=== PATIENT | female | born 1945 | race Caucasian/White ===

== ENCOUNTER 2017-11-12 06:33 | Day surgery (SDC) | payer MEDICARE ==
[~2017-11-12 06:33] MED LIST: Acetaminophen TAB* 325 MG PO PRN; Buffered Lidocaine 0.9% SYRIN* 5 ML/SYR SYRINGE INTRADERM ONE
[2017-11-12] MEDS ORDERED: Ketorolac 0.5% OPHTH (NF) 0.5 % 5 ML BTL ONE (07:14)
[2017-11-12] MEDS ORDERED: Phenylephrine 2.5% OPTH.SOL* 2 ML BTL ONE (07:14)
[2017-11-12] MEDS ORDERED: Tropicamide 1% OPTH.SOL* BTL ONE (07:14)
[2017-11-12] MEDS ORDERED: Neomycin/Polymy/Dex OPHTH.OIN* 3.5 GM ONE (07:14)
[2017-11-12] MEDS ORDERED: Cyclopentolate 1% OPTH.SOL* 2 ML BTL ONE (07:14)
[2017-11-12] MEDS ORDERED: Tetracaine 0.5% OPTH.SOL 4 ML* 1 DROP BTL ONE (07:14)
[2017-11-12] MEDS ORDERED: Lidocaine 1% MPF* 2 ML VIAL ONE (07:14)
[2017-11-12] MEDS ORDERED: Midazolam* 1 MG/ML 2 ML VIAL (2 MG) ONE (07:45)
[2017-11-12 08:12] VITALS: BP 130/76
--- NOTE | 2017-11-12 11:07 | OP ---
DATE OF OPERATION/DATE OF DICTATION: 11/12/2017 - [facility] DATE OF : 1945. SURGEON: Dr. Ryan House. MARINE ELECTRICIAN: None. ANESTHESIA: Topical with intravenous sedation. PRE-OP DIAGNOSIS: Cataract, right eye. POST-OP DIAGNOSIS: Cataract, right eye. OPERATIVE PROCEDURE: Phacoemulsification and cataract extraction with posterior chamber intraocular lens implant, right eye. COMPLICATIONS: None. BLOOD LOSS: None. DESCRIPTION OF PROCEDURE: The patient was brought to the operating room and received a small amount of intra-venous sedation. A drop of Tetracaine was placed in her right eye. She was prepped and draped in the usual sterile fashion for ophthalmic surgery and attention was directed to the right eye where a speculum was placed. A paracentesis was created at the 11 o'clock position and 0.1 cc of 1 percent preservative-free Lidocaine was injected into the anterior chamber followed by DisCoVisc. The eye was digitally stabilized while a 2.75 mm keratome was used to create a triplanar clear corneal incision at the 9 o'clock position. A continuous curvilinear capsulorrhexis was created with a cystotome and Utrata forceps. BSS on a cannula was used to hydrodissect the lens from the capsule. Phacoemulsification was performed in a divide-and- conquer technique to create four fragments which were removed. Residual cortical material was removed with irrigation and aspiration. DisCoVisc was used to inflate the capsular bag and an AUOOTO 17.5 diopter lens was folded and inserted into the capsular bag. DisCoVisc was removed using irrigation and aspiration. BSS on a cannula was used to hydrate the corneal stroma and seal the wound. At the end of the case the pupil was round and the lens was centered. The eye was of normal pressure and the wound was water tight. The speculum was removed and topical Maxitrol ointment was placed on the surface of the eye. The eye was closed, patched and shielded and the patient was sent to the recovery room in stable condition with post operative instructions and follow-up appointment given. [id number] #: [id number] MTDD
== END 2017-11-12 08:13 | disposition home or self-care (01) ==
LOC: OREAST 06:33
PROVIDERS: ATTEND Ophthalmology
DX: H25.11 Age-related nuclear cataract, right eye (principal); Z85.43 Personal history of malignant neoplasm of ovary; M81.0 Age-related osteoporosis without current pathological fracture; K91.2 Postsurgical malabsorption, not elsewhere classified
CPT/HCPCS: A9270-GY; J2250; V2632

== ENCOUNTER 2017-11-19 10:06 | Day surgery (SDC) | payer MEDICARE ==
[2017-11-19] MEDS ORDERED: Midazolam* 1 MG/ML 2 ML VIAL (2 MG) ONE (10:18)
[2017-11-19] MEDS ORDERED: fentaNYL* 50 MCG/ML 2 ML VIAL (100 MCG VIAL) ONE (10:18)
[2017-11-19 11:26] VITALS: BP 111/57
[2017-11-19] MEDS ORDERED: Phenylephrine 2.5% OPTH.SOL* 2 ML BTL ONE (13:52)
[2017-11-19] MEDS ORDERED: Tropicamide 1% OPTH.SOL* BTL ONE (13:52)
[2017-11-19] MEDS ORDERED: Lidocaine 1% MPF* 2 ML VIAL ONE (13:52)
[2017-11-19] MEDS ORDERED: Ketorolac 0.5% OPHTH (NF) 0.5 % 5 ML BTL ONE (13:52)
[2017-11-19] MEDS ORDERED: Cyclopentolate 1% OPTH.SOL* 2 ML BTL ONE (13:52)
[2017-11-19] MEDS ORDERED: Neomycin/Polymy/Dex OPHTH.OIN* 3.5 GM ONE (13:52)
[2017-11-19] MEDS ORDERED: Tetracaine 0.5% OPTH.SOL 4 ML* 1 DROP BTL ONE (13:52)
--- NOTE | 2017-11-20 00:19 | OP ---
DATE OF OPERATION: 11/19/17 - [facility] DATE OF : [birth year] SURGEON: Ryan House MD CUSTOMER SERVICE REPRESENTATIVE TELLER: None. ANESTHESIOLOGIST: Helder Acuña MD ANESTHESIA: Topical with intravenous sedation. PRE-OP DIAGNOSIS: Cataract with astigmatism, left eye. POST-OP DIAGNOSIS: Cataract with astigmatism, left eye. OPERATIVE PROCEDURE: Phacoemulsification and cataract extraction with posterior chamber toric intraocular lens implant, left eye. COMPLICATIONS: None. ESTIMATED BLOOD LOSS: None. DESCRIPTION OF PROCEDURE: The patient was seen preoperatively in the holding area where she was placed in the upright position. A zhao was made at the 6 o' clock location of the limbus of the left eye with a marking pen. The patient was subsequently brought to the operating room where she was given a small amount of intravenous sedation. She was prepped and draped in the usual sterile fashion for ophthalmic surgery and attention was directed to the left eye where a speculum was placed. A paracentesis was created at the 5 o'clock position and 0.1 cc of 1% preservative-free Lidocaine was injected into the anterior chamber followed by DisCoVisc. The eye was digitally stabilized while a 2.75 mm keratome was used to create a triplanar clear corneal incision at the 3 o'clock position. A continuous curvilinear capsulorrhexis was created with a cystotome and Utrata forceps. BSS on a cannula was used to hydrodissect the lens from the capsule. Phacoemulsification was performed in a divide-and- conquer technique to create 4 fragments, which were removed. Residual cortical material was removed with irrigation and aspiration. Healon was used to inflate the capsular bag. A Mitchell marker and marking pen were used to zhao 121 degree axis. An [id number] diopter toric lens was folded and inserted into the capsular bag. It was rotated with a Sinskey hook to the proper axial alignment. The Sinskey hook remained in the eye with paracentesis to stabilize the lens while irrigation and aspiration performed to remove viscoelastic from the eye. The Sinskey hook was then removed. The lens remained in the proper axial alignment. BSS on a cannula was used to hydrate the corneal stroma and seal the wound. At the end of the case the pupil was round. The lens was centered stable and axially aligned. The eye pressure appeared normal and the wound was water tight. The speculum was removed. Topical Maxitrol ointment was placed on the surface of the eye. The eye was closed, patched and shielded and the patient was sent to the recovery room in stable condition with postoperative instructions and followup appointment given. [id number] #: [id number] MTDD
== END 2017-11-19 11:17 | disposition home or self-care (01) ==
LOC: OREAST 10:06
PROVIDERS: ATTEND Ophthalmology
DX: H25.12 Age-related nuclear cataract, left eye (principal); H52.202 Unspecified astigmatism, left eye; M81.0 Age-related osteoporosis without current pathological fracture; K91.2 Postsurgical malabsorption, not elsewhere classified
CPT/HCPCS: A9270-GY; J2250; J3010; V2787

== ENCOUNTER 2019-07-22 07:53 | Emergency (ER) | payer MEDICARE ==
[2019-07-22] MEDS ORDERED: NS 0.9% 1000 ML** 1,000 ML IV ONE (09:24)
[2019-07-22] MEDS ORDERED: Meclizine TAB* 12.5 MG PO ONE (09:24)
[2019-07-22] MEDS ORDERED: Ondansetron INJ* 2 MG/ML VIAL IV ONE (09:25)
--- NOTE | 2019-07-22 09:27 | ED ---
Complex/Multi-Sys Presentation - HPI Summary HPI Summary: This patient is a 74 year old F presenting to ED with a chief complaint of vertigo since last night at 2300. Patient has a history of vertigo in her 40s. Patient also reports having dizziness, headache, nausea, vomiting, diarrhea, and increased heart rate since then. This morning at 0500, patient reports she started having bilateral leg cramps. She had a colonoscopy on 07/20/19. The patient rates the pain 4/10 in severity. Symptoms aggravated by nothing. Symptoms alleviated by Imodium 1mg and lying down. Patient denies palpitations, chest pain, shortness of breath. - History Of Current Complaint Chief Complaint: EDDizziness Hx Obtained From: Patient Onset/Duration: Gradual Onset, Lasting Days - Since last night, Still Present, Worse Since Timing: Constant Severity Currently: Mild Severity Initially: Mild Aggravating Factor(s): Nothing Alleviating Factor(s): Imodium 1mg, lying down Associated Signs And Symptoms: Positive: Dizziness, Headache, Nausea, Vomiting, Diarrhea, Other - Vertigo, negative: shortness of breath, chest pain, palpitations - Allergies/Home Medications Allergies/Adverse Reactions: Allergies Allergy/AdvReac Type Severity Reaction Status Date / Time hydromorphone [From Dilaudid] AdvReac Unknown See Comment Verified 07/22/19 09: 01 Home Medications: Home Medications Loperamide HCl [Loperamide] 2 mg PO SEE INSTRUCTIONS 07/22/19 [History Confirmed 07/22/19] Magnesium Oxide [Magnesium] 250 mg PO DAILY 07/22/19 [History Confirmed 07/22/19 ] Multivit-Min/Iron/Folic/Lutein [Centrum Silver Women Tablet] 1 tab PO DAILY [History Confirmed 07/22/19] PMH/Surg Hx/FS Hx/Imm Hx Endocrine/Hematology History: Reports: Hx Anemia Denies: Hx Anticoagulant Therapy, Hx Bone Marrow Disease, Hx Diabetes, Hx Systemic Lupus Erythematosus, Hx Sickle Cell Disease, Hx Thyroid Disease - Dr. Colorado: ultrasounds of parathyroid Cardiovascular History: Denies: Hx Angina, Hx Cardiomegaly, Hx Congestive Heart Failure, Hx Coronary Artery Disease, Hx Hypertension, Hx Pacemaker/ICD, Hx Peripheral Vascular Disease, Hx Rheumatic Fever, Hx Valvular Heart Disease, Other Cardiovascular Problems/Disorders Respiratory History: Denies: Hx Asthma, Hx Chronic Obstructive Pulmonary Disease (COPD), Hx Pulmonary Edema, Hx Pulmonary Embolism, Hx Sleep Apnea, Other Respiratory Problems/Disorders GI History: Reports: Hx Gastroesophageal Reflux Disease - not officially, Hx Obstructive Bowel - current, Other GI Disorders - BOWEL OBSTRUCTION 2012 Denies: Hx Cirrhosis, Hx Crohn's Disease, Hx Hiatal Hernia, Hx Irritable Bowel, Hx Jaundice, Hx Ulcer History: Reports: Other Problems/Disorders - Ovarian CA w/ LIZ Denies: Hx Dialysis, Hx Kidney Infection, Hx Kidney Stones, Hx Renal Disease Musculoskeletal History: Reports: Hx Scoliosis Denies: Hx Arthritis, Hx Rheumatoid Arthritis, Hx Bursitis, Hx Osteoporosis, Hx Tendonitis, Other Musculoskeletal History Sensory History: Reports: Hx Cataracts - right eye, Other Sensory Impairments - States has Meniere's disease. Denies: Hx Contacts or Glasses, Hx Glaucoma, Hx Hearing Aid Opthamlomology History: Reports: Hx Cataracts - right eye, Other Sensory Impairments - States has Meniere's disease. Denies: Hx Contacts or Glasses, Hx Glaucoma Neurological History: Reports: Hx Migraine Denies: Hx Dementia, Hx Headaches, Hx Seizures, Other Neuro Impairments/ Disorders Psychiatric History: Denies: Hx Anxiety, Hx Depression - Cancer History Cancer Type, Location and Year: ovarian CA Hx Chemotherapy: Yes - OVARIAN CANCER Hx Radiation Therapy: No - Surgical History Surgery Procedure, Year, and Place: LIZ with debulking 2011 [place], Small intestine resection 2013 [facility] appendix also removed, cataracts-10/2017, power port placement and removal Hx Anesthesia Reactions: No Infectious Disease History: No Infectious Disease History: Reports: Hx Tuberculosis - When 10 years old Denies: Hx Clostridium Difficile, Hx Hepatitis, Hx Human Immunodeficiency Virus (HIV), Hx Shingles, Traveled Outside the [place] in Last 30 Days - Family History Known Family History: Positive: Cardiac Disease, Other - Arthritis, thyroid disease - Social History Alcohol Use: None Alcohol Amount: 1/2 GLASS WINE EVERY 6 MONTHS Hx Substance Use: No Substance Use Type: Reports: None Hx Tobacco Use: No Smoking Status (MU): Never Smoked Tobacco Have You Smoked in the Last Year: No Review of Systems Negative: Palpitations, Chest Pain Negative: Shortness Of Breath Positive: Vomiting, Diarrhea, Nausea Neurological: Other - Dizzines, vertigo Positive: Headache All Other Systems Reviewed And Are Negative: Yes Physical Exam - Summary Physical Exam Summary: VITAL SIGNS: Reviewed. GENERAL: Patient is a well-developed and nourished female who is lying comfortable in the stretcher. Patient is not in any acute respiratory distress. HEAD AND FACE: No signs of trauma. No ecchymosis, hematomas or skull depressions. No sinus tenderness. EYES: PERRLA, EOMI x 2, No injected conjunctiva, no nystagmus. EARS: Hearing grossly intact. Ear canals and tympanic membranes are within normal limits. MOUTH: Oropharynx within normal limits. NECK: Supple, trachea is midline, no adenopathy, no JVD, no carotid bruit, no c- spine tenderness, neck with full ROM. CHEST: Symmetric, no tenderness at palpation. LUNGS: Clear to auscultation bilaterally. No wheezing or crackles. CVS: Regular rate and rhythm, S1 and S2 present, no murmurs or gallops appreciated. ABDOMEN: Soft, non-tender. No signs of distention. No rebound, no guarding, and no masses palpated. Bowel sounds are normal. EXTREMITIES: FROM in all major joints, no edema, no cyanosis or clubbing. NEURO: Alert and oriented x 3. No acute neurological deficits. Speech is normal and follows commands. SKIN: Dry and warm GCS: 15 Triage Information Reviewed: Yes Vital Signs On Initial Exam: Initial Vitals Temp Pulse Resp BP Pulse Ox 98.1 F 100 16 176/97 100 07/22/19 08:02 07/22/19 08:02 07/22/19 08:02 07/22/19 08:02 07/22/19 08:02 Vital Signs Reviewed: Yes Diagnostics - Vital Signs Vital Signs Temp Pulse Resp BP Pulse Ox 07/22/19 09:00 90 28 96 07/22/19 08:58 86 20 151/86 95 07/22/19 08:12 95 24 184/93 97 07/22/19 08:11 95 98 07/22/19 08:02 98.1 F 100 16 176/97 100 - Laboratory Result Diagrams: 07/22/19 09:31 07/22/19 09:31 Lab Statement: Any lab studies that have been ordered have been reviewed, and results considered in the medical decision making process. - Radiology CXR Radiology Interpretation Completed By: Radiologist Summary of Radiographic Findings: HYPERINFLATION, CONSISTENT WITH COPD. NO ACTIVE CARDIOPULMONARY DISEASE. Dr. Marcos has reviewed this radiology report. - CT Brain CT Interpretation Completed By: Radiologist Summary of CT Findings: NO ACUTE INTRACRANIAL PATHOLOGY. Dr. Marcos has reviewed this radiology report. - EKG 0758 Cardiac Rate: Tachycardia - 100 BPM EKG Rhythm: Sinus Tachycardia ST Segment: Normal EKG Comparison: No Significant Change Summary of EKG Findings: An EKG at 0758 revealed sinus tachycardia at 100 BPM, no ST elevations, similar to 12/01/12. Dr. Marcos has reviewed and interpreted this EKG. Re-Evaluation - Re-Evaluation First Eval Re-Evaluation Time: 13:15 Change: Improved Comment: I ambulated the patient and the patient has a good steady walk patient doesnt have any type of ataxia. Discussed results with patient. Patient reports feeling better. Patient will be discharged home with dx of vertigo. Patient understands and agrees with this plan. Complex Multi-Symp Course/Dx Assessment/Plan: This patient is a 74-year-old female who presents to the emergency department with a chief complaint of having dizziness, headache and nausea/vomiting. She reports that she has a history of vertigo. IV access was obtained, the patient was given fluids for rehydration, Zofran for nausea/ vomiting and meclizine for vertigo. She continued to have slight nausea therefore the patient was given Reglan. Blood work without any significant abnormality except for Sodium 129, chloride 96 glucose 127, magnesium 1.2, BNP is 196 and urinalysis negative for UTI. Patient was given magnesium IV. Chest x-ray impression: Hyperinflation, consistent with COPD. No active cardiopulmonary disease. Head CT impression: No acute interconnected pathology. After the patient was given the above medications the patients symptoms have resolved. I ambulated the patient and the patient has a good steady walk patient doesnt have any type of ataxia. We also did orthostatics and they are within normal limits. At this point I discussed all the findings and test results with the patient. She was instructed to return to the emergency room immediately if any of the symptoms return or worsen. Patient understand and agree. Neurological exam before discharge: Patient is alert and oriented x 3. No acute neurological deficits. Patient's vital signs are stable. Patient is to follow up with [facility] in the next 2 3 days. She understands and agrees. Plan of care was discussed with the patient and patient understands and agrees with the plan of care. All questions were answered at patient satisfaction. There were no further complaints or concerns. - Diagnoses Differential Diagnoses/HQI/PQRI: Cardiac Ischemia, CVA, Urinary Tract Infection - TIA,, Other Provider Diagnoses: Vertigo Discharge ED - Sign-Out/Discharge Documenting (check all that apply): Patient Departure - Discharge Patient Received Moderate/Deep Sedation with Procedure: No - Discharge Plan Condition: Stable Disposition: HOME Prescriptions: Meclizine TAB* [Antivert 12.5 TAB*] 25 mg PO TID PRN #30 tab PRN Reason: Vertigo Patient Education Materials: Vertigo (ED) Referrals: Jorje Colorado MD [Primary Care Provider] - 3 Days Additional Instructions: FOLLOW UP WITH YOUR PRIMARY CARE PROVIDER WITHIN ONE WEEK. RETURN TO THE ED FOR ANY WORSENING OR NEW SYMPTOMS. - Billing Disposition and Condition Condition: STABLE Disposition: Home - Attestation Statements Document Initiated by Davidibe: Yes Documenting Scribe: Pedro Petersen Provider For Whom Deana is Documenting (Include Credential): Pritesh Marcos MD Scribe Attestation: Pedro Scott, scribed for Pritesh Marcos MD on 07/23/19 at 1835. Scribe Documentation Reviewed: Yes Provider Attestation: The documentation as recorded by the Pedro ta accurately reflects the service I personally performed and the decisions made by Pritesh olson MD Status of Scribe Document: Viewed
[2019-07-22 09:39] LABS: ABS Lymphocytes 0.7 10^3/ul (1.0-4.8); ABS Monocytes 0.2 10^3/ul (0-0.8); ABS Neutrophils 5.5 10^3/ul (1.5-7.7); Hematocrit 42 % (35-47); Hemoglobin 13.9 g/dL (12.0-16.0); Lymphocyte % 11.5 %; Mean Corpuscular HGB Conc 34 g/dL (31-36); Mean Corpuscular Hemoglobin 29 pg (27-31); Mean Corpuscular Volume 87 fL (80-97); Mean Platelet Volume 6.7 fL (7.4-10.4); Platelet Count 272 10^3/uL (150-450); Red Blood Count 4.78 10^6 /uL (3.70-4.87); Red Cell Distribution Width 13 % (10-15); White Blood Count 6.4 10^3/uL (3.5-10.8)
[2019-07-22 09:56] LABS: Albumin 4.4 g/dL (3.2-5.2); Albumin/Globulin Ratio 1.6 (1-3); BUN/Creatinine Ratio 12.9 (8-20); C Reactive Protein 2.02 mg/L (<8.01); Calcium 9.7 mg/dL (8.6-10.3); EGFR African American 114.5 (>60); EGFR Non-African American 94.6 (>60); Globulin 2.7 g/dL (2-4); Magnesium 1.3 mg/dL (1.9-2.7); Potassium 3.9 mmol/L (3.5-5.0); Total Bilirubin 0.7 mg/dL (0.2-1.0); Total Protein 7.1 g/dL (6.4-8.9)
[2019-07-22 09:58] LABS: Troponin I 0.01 ng/mL (<0.04)
[2019-07-22 10:06] LABS: Urine Appearance Clear; Urine Bilirubin Negative (Negative); Urine Blood Negative (Negative); Urine Color Yellow; Urine Glucose 1+(50 mg/dL) (Negative); Urine Ketones 1+ (Negative); Urine Nitrite Negative (Negative); Urine Protein Negative (Negative); Urine Specific Gravity 1.011 (1.010-1.030); Urine Urobilinogen Negative (Negative)
[2019-07-22] MEDS ORDERED: Metoclopramide IV* 5 MG/ML 2 ML VIAL IV ONE (10:33)
[2019-07-22 10:35] LABS: TSH (Thyroid Stimulating Horm) 0.66 mcIU/mL (0.34-5.60)
[2019-07-22] MEDS ORDERED: Magnesium Sulfate 1 GM IV* 1 GM/100 ML BAG IV ONE (12:26)
[2019-07-22 13:36] VITALS: BP 138/77
== END 2019-07-22 13:30 | disposition home or self-care (01) ==
LOC: ED 07:53
DX: R42 Dizziness and giddiness (principal); R51 Headache; R11.2 Nausea with vomiting, unspecified; R19.7 Diarrhea, unspecified; R00.0 Tachycardia, unspecified; Z88.5 Allergy status to narcotic agent
CPT/HCPCS: 36415; 70450; 71046; 80053; 81003; 82550; 83605; 83735; 83880; 84443; 84484; 85025; 86140; 93005; 96361; 96365; 96375; 99284; A9270-GY; J2405; J2765; J3475